=== PATIENT | male | born 1950 | race Two or more races ===

== ENCOUNTER 2017-02-11 12:31 | Outpatient (CLI) | payer MEDICARE, MEDICAID | END 2017-02-11 23:55 | LOC: WOU 12:31 | PROVIDERS: ATTEND Surgery | DX: E11.622 Type 2 diabetes mellitus with other skin ulcer (principal); L97.321 Non-pressure chronic ulcer of left ankle limited to breakdown of skin; E11.41 Type 2 diabetes mellitus with diabetic mononeuropathy; Z79.4 Long term (current) use of insulin; Z87.891 Personal history of nicotine dependence; I69.354 Hemiplegia and hemiparesis following cerebral infarction affecting left non-dominant side; I10 Essential (primary) hypertension; M21.172 Varus deformity, not elsewhere classified, left ankle; N17.9 Acute kidney failure, unspecified; R23.4 Changes in skin texture | CPT/HCPCS: A6209; A6402; G0463 ==

== ENCOUNTER 2017-02-18 09:49 | Outpatient (CLI) | payer MEDICARE, MEDICAID | END 2017-02-18 23:59 | LOC: WOU 09:49 | PROVIDERS: ATTEND Podiatrist Foot & Ankle Surgery | DX: E11.622 Type 2 diabetes mellitus with other skin ulcer (principal); L97.321 Non-pressure chronic ulcer of left ankle limited to breakdown of skin; E11.41 Type 2 diabetes mellitus with diabetic mononeuropathy; I69.354 Hemiplegia and hemiparesis following cerebral infarction affecting left non-dominant side; Z79.4 Long term (current) use of insulin | CPT/HCPCS: A6402; G0463 ==

== ENCOUNTER 2017-02-19 09:30 | Outpatient (CLI) | payer MEDICARE, MEDICAID | END 2017-02-19 23:59 | disposition home or self-care (01) | LOC: WOU 09:30 | PROVIDERS: ATTEND Podiatrist Foot & Ankle Surgery | DX: S81.802A Unspecified open wound, left lower leg, initial encounter (principal); X58.XXXA Exposure to other specified factors, initial encounter; Y92.89 Other specified places as the place of occurrence of the external cause; I82.511 Chronic embolism and thrombosis of right femoral vein; I82.531 Chronic embolism and thrombosis of right popliteal vein; I70.221 Atherosclerosis of native arteries of extremities with rest pain, right leg | CPT/HCPCS: 93970-TC ==

== ENCOUNTER 2017-02-25 09:22 | Outpatient (CLI) | payer MEDICARE, MEDICAID | END 2017-02-25 23:59 | disposition home health service (06) | LOC: WOU 09:22 | PROVIDERS: ATTEND Podiatrist Foot & Ankle Surgery | DX: E11.622 Type 2 diabetes mellitus with other skin ulcer (principal); L97.321 Non-pressure chronic ulcer of left ankle limited to breakdown of skin; E11.41 Type 2 diabetes mellitus with diabetic mononeuropathy; M21.372 Foot drop, left foot; E11.51 Type 2 diabetes mellitus with diabetic peripheral angiopathy without gangrene; Z87.891 Personal history of nicotine dependence; I69.354 Hemiplegia and hemiparesis following cerebral infarction affecting left non-dominant side; I10 Essential (primary) hypertension; Z79.4 Long term (current) use of insulin; I82.511 Chronic embolism and thrombosis of right femoral vein; Z85.038 Personal history of other malignant neoplasm of large intestine | CPT/HCPCS: A6402; G0463 ==

== ENCOUNTER 2017-03-11 10:19 | Outpatient (CLI) | payer MEDICARE, MEDICAID | END 2017-03-11 23:59 | disposition home or self-care (01) | LOC: WOU 10:19 | PROVIDERS: ATTEND Podiatrist Foot & Ankle Surgery | DX: S91.011A Laceration without foreign body, right ankle, initial encounter (principal); W22.8XXA Striking against or struck by other objects, initial encounter; E11.51 Type 2 diabetes mellitus with diabetic peripheral angiopathy without gangrene; I69.354 Hemiplegia and hemiparesis following cerebral infarction affecting left non-dominant side; E78.5 Hyperlipidemia, unspecified; I10 Essential (primary) hypertension; Z85.038 Personal history of other malignant neoplasm of large intestine; M21.372 Foot drop, left foot; Z87.891 Personal history of nicotine dependence; Z86.718 Personal history of other venous thrombosis and embolism; Z79.4 Long term (current) use of insulin | CPT/HCPCS: A6402; G0463 ==